=== PATIENT | female | born 1960 | race Caucasian/White ===

== ENCOUNTER 2020-09-27 17:14 | Emergency (ER) | payer BC ==
[~2020-09-27] VITALS: Ht 175.3 cm; Wt 137.9 kg
--- NOTE | 2020-09-27 17:14 | NUR ---
PT BIB SELF C/O L 2ND TOE LACERATION. PT IS AAOX4, NOT IN RESPIRATORY DISTRESS, HOOKED TO NEUROLOGY DIRECTOR, KEPT RESTED AND COMFORTABLE. WILL CONTINUE TO MONITOR.
--- NOTE | 2020-09-27 18:25 | NUR ---
WOUND CARE COORDINATOR AT BEDSIDE FOR XRAY.
--- NOTE | 2020-09-27 19:05 | NUR ---
REC'D REPORT FORM NERI BAILEY FOR [facility]
[2020-09-27] MEDS ORDERED: CEPH500C2 PO (19:47)
--- NOTE | 2020-09-27 19:49 | NUR ---
Patient discharged to home in stable condition. Written and verbal after care instructions given. Patient verbalizes understanding of instruction. PT ambulatory with a steady gait
[2020-09-27 19:56] VITALS: BP 135/75
== END 2020-09-27 19:49 | disposition home or self-care (01) ==
LOC: ER 17:20
DX: S91.125A Laceration with foreign body of left lesser toe(s) without damage to nail, initial encounter (principal); S91.112A Laceration without foreign body of left great toe without damage to nail, initial encounter; F32.9 Major depressive disorder, single episode, unspecified; W22.8XXA Striking against or struck by other objects, initial encounter; Y93.89 Activity, other specified; Y92.89 Other specified places as the place of occurrence of the external cause; Y99.8 Other external cause status
CPT/HCPCS: 12001; 12042; 73630; 99284; A6403